=== PATIENT | female | born 1990 | race Caucasian/White ===

== ENCOUNTER 2019-05-29 17:01 | Emergency (ER) | payer OTHER ==
[~2019-05-29] VITALS: Ht 157.5 cm; Wt 104.3 kg
[~2019-05-29 17:01] MED LIST: FIRST-PROGESTER25 MG; FOLIC ACID0.4 MG PO; PEPCID40 MG PO; PHENERGAN 25 MG25 M1 PO; PHENERGAN25 M2 RC; PRENATAL; PROMETRIUM
[2019-05-29] MEDS ORDERED: ZOLOFT50 MG PO ×2 (17:17→19:09)
[2019-05-29] MEDS ORDERED: METFORMIN HCL500 MG PO (17:17)
[2019-05-29 18:20] LABS: URINE BILIRUBIN NEGATIVE (Negative); URINE BLOOD 2+ (Negative); URINE CLARITY CLEAR; URINE COLOR YELLOW; URINE GLUCOSE-RANDOM NEGATIVE (Negative); URINE KETONES NEGATIVE (Negative); URINE LEUKOCYTES-REFLEX NEGATIVE (Negative); URINE NITRITE-REFLEX NEGATIVE (Negative); URINE PROTEIN NEGATIVE (Negative); URINE SPECIFIC GRAVITY 1.025 (1.005-1.030); URINE UROBILINOGEN 0.2 E.U./dl (0.2-1.0)
[2019-05-29 18:43] LABS: ABSOLUTE BASOPHILS 0.2 thou/uL (0.0-0.2); ABSOLUTE EOSINOPHILS 0.2 thou/uL (0.0-0.7); ABSOLUTE LYMPHOCYTES 2.9 thou/uL (0.8-5.3); ABSOLUTE MONOCYTES 0.6 thou/uL (0.0-1.2); ABSOLUTE NEUTROPHILS 8.3 thou/uL (1.6-8.1); BASOPHILS 1.2 %; EOSINOPHILS 1.9 %; HEMATOCRIT 37.9 % (37.0-47.0); HEMOGLOBIN 12.3 gm/dL (12.0-15.0); LYMPHOCYTES 23.7 %; MCH 25.3 pg (26.0-34.0); MCHC 32.5 g/dL (28.0-37.0); MCV 77.9 fL (80.0-100.0); MONOCYTES 4.8 %; MPV 6.3 fl. (7.2-11.1); NUCLEATED RBCS 0 /100WBC; PLATELET COUNT* 344 thou/uL (150-400); POLYS 68.4 %; RBC 4.86 mil/uL (4.20-5.00); RDW-CV 14.7 % (10.5-14.5); WBC 12.1 thou/uL (4.0-11.0)
[2019-05-29 18:45] LABS: BACTERIA-REFLEX 1-9 Few /HPF (None Seen); CASTS None Seen /LPF (None Seen); CRYSTALS None Seen /LPF (None Seen); SQUAMOUS 4-10 Moderate /LPF (0-3); URINE RBC 0-2 Rare /HPF (0-2); URINE WBC-REFLEX 0-5 Rare /HPF (0-5)
[2019-05-29 18:51] LABS: CALCIUM 9.1 mg/dL (8.5-10.1); CREATININE 0.7 mg/dL (0.6-1.3); POTASSIUM 4.1 mmol/L (3.5-5.1)
[2019-05-29 19:01] LABS: ALBUMIN 3.6 g/dL (3.4-5.0); TOTAL BILIRUBIN 0.2 mg/dL (<0.1-1.0); TOTAL PROTEIN 7.5 g/dL (6.4-8.2)
[2019-05-29] MEDS ORDERED: XANAX1 MG PO (19:09)
[2019-05-29 19:19] VITALS: BP 134/89
--- NOTE | 2019-05-30 17:02 | EKG ---
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
== END 2019-05-29 19:20 | disposition home or self-care (01) ==
LOC: M.ERS 17:01
PROVIDERS: Physician Assistant
DX: F41.9 Anxiety disorder, unspecified (principal); R42 Dizziness and giddiness; E28.2 Polycystic ovarian syndrome; F17.210 Nicotine dependence, cigarettes, uncomplicated; Z88.1 Allergy status to other antibiotic agents

== ENCOUNTER 2021-06-26 01:17 | Emergency (ER) | payer OTHER ==
[~2021-06-26] VITALS: Ht 160 cm; Wt 108.9 kg
[~2021-06-26 01:17] MED LIST changes: +METFORMIN HCL500 MG PO; +XANAX1 MG PO; +ZOLOFT50 MG PO
[2021-06-26] MEDS ORDERED: LEVOTHYROXINE75 MC1 PO (01:34)
[2021-06-26] MEDS ORDERED: BUSPIRONE HCL5 MG PO (01:35)
[2021-06-26 02:07] LABS: HEMATOCRIT 39.6 % (37.0-47.0); HEMOGLOBIN 12.7 gm/dL (12.0-15.0); MCH 26.1 pg (26.0-34.0); MCV 81.4 fL (80.0-100.0); MPV 5.7 fl. (7.2-11.1); RBC 4.87 mil/uL (4.20-5.00); RDW-CV 15.2 % (10.5-14.5); WBC 11.7 thou/uL (4.0-11.0)
[2021-06-26 02:08] LABS: URINE BILIRUBIN NEGATIVE (Negative); URINE BLOOD NEGATIVE (Negative); URINE CLARITY CLEAR; URINE COLOR YELLOW; URINE GLUCOSE-RANDOM NEGATIVE (Negative); URINE KETONES NEGATIVE (Negative); URINE LEUKOCYTES-REFLEX NEGATIVE (Negative); URINE NITRITE-REFLEX NEGATIVE (Negative); URINE PROTEIN NEGATIVE (Negative); URINE SPECIFIC GRAVITY >= 1.030 (1.005-1.030); URINE UROBILINOGEN 0.2 E.U./dl (0.2-1.0)
[2021-06-26 02:14] LABS: CALCIUM 8.9 mg/dL (8.5-10.1); CREATININE 0.8 mg/dL (0.6-1.3); POTASSIUM 3.9 mmol/L (3.5-5.1)
[2021-06-26 02:19] LABS: ALBUMIN 3.8 g/dL (3.4-5.0); TOTAL BILIRUBIN 0.2 mg/dL (<0.1-1.0); TOTAL PROTEIN 7.2 g/dL (6.4-8.2)
[2021-06-26] MEDS ORDERED: AMITRIPTYLINE H25 M2 PO (02:59)
[2021-06-26 03:24] VITALS: BP 128/66
--- NOTE | 2021-06-26 11:17 | EKG ---
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1990 Requested By: Melinda Beasley Order Number: [id number] MD: Grant Kang Measurements Intervals [place] Rate: 91 P: 74 MT: 166 QRS: 48 QRSD: 91 T: 22 QT: 371 QTc: 457 Interpretive Statements Sinus rhythm Consider right atrial enlargement Compared to ECG 05/29/2019 17:09:19 Sinus rate has slowed slightly Electronically Signed On 06-26-2021 11:16:53 CDT by Grant Kang [email or web address] <ELECTRONICALLY SIGNED> By: Grant Kang MD, [facility] 06/26/21 1116 0126 0126 Grant Kang MD, [facility] /EPI
== END 2021-06-26 03:24 | disposition home or self-care (01) ==
LOC: M.ERS 01:17
PROVIDERS: Personal Emergency Response Attendant
DX: R03.0 Elevated blood-pressure reading, without diagnosis of hypertension (principal); F41.9 Anxiety disorder, unspecified; F32.9 Major depressive disorder, single episode, unspecified; Z79.899 Other long term (current) drug therapy; Z79.84 Long term (current) use of oral hypoglycemic drugs; Z88.1 Allergy status to other antibiotic agents

== ENCOUNTER 2021-10-11 06:04 | Emergency (ER) | payer OTHER ==
[~2021-10-11] VITALS: Ht 157.5 cm; Wt 108.9 kg
[~2021-10-11 06:04] MED LIST changes: +AMITRIPTYLINE H25 M2 PO; +BUSPIRONE HCL5 MG PO; +LEVOTHYROXINE75 MC1 PO
[2021-10-11 06:47] LABS: CALCIUM 9.3 mg/dL (8.5-10.1); CREATININE 0.7 mg/dL (0.6-1.3); POTASSIUM 4.2 mmol/L (3.5-5.1)
[2021-10-11 07:01] LABS: ABSOLUTE BASOPHILS 0.1 thou/uL (0.0-0.2); ABSOLUTE EOSINOPHILS 0.1 thou/uL (0.0-0.7); ABSOLUTE LYMPHOCYTES 3.6 thou/uL (0.8-5.3); ABSOLUTE MONOCYTES 0.5 thou/uL (0.0-1.2); ABSOLUTE NEUTROPHILS 8.7 thou/uL (1.6-8.1); BASOPHILS 0.7 %; HEMATOCRIT 42.6 % (37.0-47.0); HEMOGLOBIN 13.9 gm/dL (12.0-15.0); LYMPHOCYTES 27.9 %; MCHC 32.6 g/dL (28.0-37.0); MCV 79.9 fL (80.0-100.0); MPV 5.9 fl. (7.2-11.1); NUCLEATED RBCS 0 /100WBC; PLATELET COUNT* 338 thou/uL (150-400); POLYS 66.4 %; RBC 5.34 mil/uL (4.20-5.00); RDW-CV 14.3 % (10.5-14.5); WBC 13.1 thou/uL (4.0-11.0)
[2021-10-11] MEDS ORDERED: TESSALON PERLE100 MG PO (08:00)
[2021-10-11 08:37] VITALS: BP 158/94
--- NOTE | 2021-10-11 10:50 | EKG ---
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1990 Requested By: Emilie Virk Order Number: [id number] MD: Gadiel Robbins Measurements Intervals [place] Rate: 95 P: 65 [place]: 141 QRS: 19 QRSD: 103 T: 42 QT: 361 QTc: 454 Interpretive Statements Sinus rhythm Low voltage, precordial leads Baseline wander in lead(s) V2 Compared to ECG 06/26/2021 01:26:03 Low QRS voltage now present Electronically Signed On 10-11-2021 10:50:10 API ARCHITECT by Gadiel Robbins [email or web address] <ELECTRONICALLY SIGNED> By: Gadiel Robbins MD, [facility] 10/11/21 1050 0622 1 Gadiel Robbins MD, [facility] /EPI
== END 2021-10-11 08:41 | disposition home or self-care (01) ==
LOC: M.ERS 06:04
PROVIDERS: Emergency Medicine
DX: I16.0 Hypertensive urgency (principal); F41.9 Anxiety disorder, unspecified; J06.9 Acute upper respiratory infection, unspecified; F32.9 Major depressive disorder, single episode, unspecified; F17.210 Nicotine dependence, cigarettes, uncomplicated; Z79.899 Other long term (current) drug therapy; Z88.0 Allergy status to penicillin